=== PATIENT | male | born 1950 | race Caucasian/White ===

== ENCOUNTER 2018-12-15 18:05 | Emergency (ER) | payer MEDICARE, OTHER ==
[2018-12-15] MEDS ORDERED: Clindamycin 600 MG IVPREMIX(* 600 MG in PREMIX* 0 ML IV ONE (18:28)
[2018-12-15] MEDS ORDERED: Acetaminophen TAB* 325 MG PO ONE (18:29)
[2018-12-15] MEDS ORDERED: diPHENhydraMINE PO* 25 MG PO ONE (18:29)
--- NOTE | 2018-12-15 18:34 | ED ---
Skin Complaint - HPI Summary HPI Summary: 68-year-old male presents with rash for the past week. He states that he hit a shopping cart into his leg and had some abrasions. He states he started applying benzocaine on the area and then developing this rash. He states it is very itchy. He has been using benzocaine liberally. He states the rash is where he put the benzocaine. He's never had this reaction before. he states did apply burn cream the other day that helped. Denies any other different products. No fevers or chills. Has noticed any redness to the area. He is not diabetic. Never had this rash before. No increased swelling to his legs. denies any other symptoms. - History of Current Complaint Chief Complaint: EDGeneral Time Seen by Provider: 12/15/18 18:19 Stated Complaint: LEG RASH PER EMS Pain Intensity: 0 - Allergy/Home Medications Allergies/Adverse Reactions: Allergies Allergy/AdvReac Type Severity Reaction Status Date / Time latex Allergy Swelling Verified 12/15/18 18:13 naproxen Allergy Palpitation Verified 12/15/18 18:14 s PMH/Surg Hx/FS Hx/Imm Hx Endocrine/Hematology History: Denies: Hx Anticoagulant Therapy Cardiovascular History: Reports: Hx Angina, Hx Coronary Artery Disease, Hx Hypercholesterolemia, Hx Hypertension Musculoskeletal History: Reports: Hx Back Problems, Hx Orthopedic Injury - chronic back injury Sensory History: Reports: Hx Contacts or Glasses Opthamlomology History: Reports: Hx Contacts or Glasses - Cancer History Cancer Type, Location and Year: Family history Hx Chemotherapy: No - Surgical History Surgery Procedure, Year, and Place: Tonsillectomy Hx Anesthesia Reactions: No - Immunization History Date of Tetanus Vaccine: unsure 5-10 years per patient Infectious Disease History: No Infectious Disease History: Denies: Traveled Outside the [place] in Last 30 Days - Family History Known Family History: Positive: Non-Contributory - Social History Alcohol Use: None Substance Use Type: Reports: None Smoking Status (MU): Former Smoker Review of Systems Positive: Chills. Negative: Fever Negative: Chest Pain Negative: Shortness Of Breath Positive: Rash All Other Systems Reviewed And Are Negative: Yes Physical Exam Triage Information Reviewed: Yes Vital Signs On Initial Exam: Initial Vitals Temp Pulse Resp BP Pulse Ox 99.5 F 80 16 140/89 97 12/15/18 18:08 12/15/18 18:08 12/15/18 18:08 12/15/18 18:08 12/15/18 18:08 Vital Signs Reviewed: Yes Appearance: Positive: Well-Appearing Skin: Positive: Warm, Dry, Other - patch erythematous rash on bilateral legs, some warmth to touch, Head/Face: Positive: Normal Head/Face Inspection Eyes: Positive: Normal, Conjunctiva Clear ENT: Positive: Pharynx normal Respiratory/Lung Sounds: Positive: Clear to Auscultation, Breath Sounds Present Cardiovascular: Positive: Normal, RRR Musculoskeletal: Positive: Strength/ROM Intact - legs, Other - good pulses Neurological: Positive: Normal Psychiatric: Positive: Normal Diagnostics - Vital Signs Vital Signs Temp Pulse Resp BP Pulse Ox 12/15/18 18:08 99.5 F 80 16 140/89 97 - Laboratory Result Diagrams: 12/15/18 18:54 12/15/18 18:54 Lab Statement: Any lab studies that have been ordered have been reviewed, and results considered in the medical decision making process. Course/Dx - Course Course Of Treatment: 68-year-old male presents with rash for the past week. He states that he hit a shopping cart into his leg and had some abrasions. He states he started applying benzocaine on the area and then developing this rash. He states it is very itchy. He has been using benzocaine liberally. He states the rash is where he put the benzocaine. He's never had this reaction before. he states did apply burn cream the other day that helped. Denies any other different products. No fevers or chills. Has noticed any redness to the area. He is not diabetic. Never had this rash before. No increased swelling to his legs. On exam erythematous patchy rash to legs. Appears almost like burn but is warm to touch. wbc normal. CRP normal. With erythema the will treat this potential cellulitis with Keflex. Told to use Benadryl for itching. We'll give him bacitracin to treat like a potential burn. Told to stop benzocaine. Told to follow up with primary. Patient understands and agrees with plan. - Differential Diagnoses - Skin Complaint Differential Diagnoses: Cellulitis, Contact Dermatitis, Other - burn - Diagnoses Provider Diagnoses: Rash Discharge - Sign-Out/Discharge Documenting (check all that apply): Patient Departure Patient Received Moderate/Deep Sedation with Procedure: No - Discharge Plan Condition: Good Disposition: HOME Prescriptions: Bacitracin OINTMENT* 1 applic TOPICAL BID #1 tube Cephalexin CAP* [Keflex CAP*] 500 mg PO BID #14 cap Patient Education Materials: Contact Dermatitis (ED) Referrals: Tiffanie Escoto [Nurse Practitioner] - Additional Instructions: take keflex twice a day for 7 days Apply bacitracin cream to area once a day and cover area Take tyenlol for pain every 6 hour Establish care with primary for follow up Return to ED if any new or worsening symptoms - Billing Disposition and Condition Condition: GOOD Disposition: Home
[2018-12-15 19:03] LABS: ABS Basophils 0 10^3/ul (0-0.2); ABS Eosinophils 0.3 10^3/ul (0-0.6); ABS Monocytes 0.4 10^3/ul (0-0.8); ABS Neutrophils 5.5 10^3/ul (1.5-7.7); ABS Nucleated RBC 0 10^3/ul; Eosinophil % 4.4 %; Hematocrit 43 % (36-46); Hemoglobin 14.4 g/dL (14.0-18.0); Lymphocyte % 14.3 %; Mean Corpuscular HGB Conc 34 g/dL (31-36); Mean Corpuscular Hemoglobin 31 pg (27-31); Mean Corpuscular Volume 93 fL (80-94); Mean Platelet Volume 7.4 fL (7.4-10.4); Nucleated Red Blood Cells % 0; Platelet Count 206 10^3/uL (150-450); Red Blood Count 4.57 10^6 /uL (4.18-5.48); Red Cell Distribution Width 14 % (10.5-15); White Blood Count 7.2 10^3/uL (3.5-10.8)
[2018-12-15] MEDS ORDERED: Cephalexin CAP* 500 MG PO ONE (19:12)
[2018-12-15 19:19] LABS: Albumin 4.5 g/dL (3.2-5.2); Albumin/Globulin Ratio 1.5 (1-3); BUN/Creatinine Ratio 13.9 (8-20); C Reactive Protein 2.46 mg/L (<8.01); Calcium 9.2 mg/dL (8.6-10.3); EGFR African American 76.8 (>60); EGFR Non-African American 63.4 (>60); Globulin 3.1 g/dL (2-4); Potassium 3.7 mmol/L (3.5-5.0); Total Bilirubin 0.5 mg/dL (0.2-1.0); Total Protein 7.6 g/dL (6.4-8.9)
[2018-12-15 20:56] VITALS: BP 115/68
== END 2018-12-15 20:20 | disposition home or self-care (01) ==
LOC: ED 18:05
DX: R21 Rash and other nonspecific skin eruption (principal); I25.10 Atherosclerotic heart disease of native coronary artery without angina pectoris; Z87.891 Personal history of nicotine dependence; R68.83 Chills (without fever)
CPT/HCPCS: 36415; 80053; 83605; 85025; 86140; 87040; 96374; 99282; A9270-GY

== ENCOUNTER 2022-09-21 14:50 | Observation (INO) ==
[2022-09-21 16:05] LABS: ABS Lymphocytes 0.7 10^3/ul (1.0-4.8); ABS Monocytes 0.3 10^3/ul (0-0.8); ABS Neutrophils 5.6 10^3/ul (1.5-7.7); Eosinophil % 0.5 %; Hematocrit 45 % (42-52); Hemoglobin 14.6 g/dL (14.0-18.0); Lymphocyte % 9.8 %; Mean Corpuscular HGB Conc 33 g/dL (31-36); Mean Corpuscular Hemoglobin 30 pg (27-31); Mean Corpuscular Volume 93 fL (80-94); Mean Platelet Volume 7.8 fL (7.4-10.4); Platelet Count 196 10^3/uL (150-450); Red Cell Distribution Width 14 % (10-15); White Blood Count 6.7 10^3/uL (3.5-10.8)
[2022-09-21 16:41] LABS: Urine Appearance Turbid; Urine Color Red
[2022-09-21 16:42] LABS: Urine Specific Gravity 1.011 (1.002-1.030)
[2022-09-21 16:50] LABS: Albumin 4.4 g/dL (3.2-5.2); Albumin/Globulin Ratio 1.6 (1-3); C Reactive Protein 1.95 mg/L (<8.01); Calcium 9.6 mg/dL (8.6-10.3); Creatinine, Serum 0.99 mg/dL (0.67-1.17); Globulin 2.8 g/dL (2-4); Total Bilirubin 0.6 mg/dL (0.2-1.0); Total Protein 7.2 g/dL (6.4-8.9)
[2022-09-21 16:52] LABS: Potassium 4.2 mmol/L (3.5-5.0)
[2022-09-21 16:52] LABS: Urine Bacteria Absent (Absent); Urine Red Blood Cell 3+(>10/hpf) (Absent); Urine White Blood Cell 1+(6-10/hpf) (Absent)
[2022-09-21 20:19] LABS: PSA Screening Total 4.977 ng/mL (0-4.000)
[2022-09-21] MEDS ORDERED: cefTRIAXone 1 gm/50 mL D5W 1 GM/50 ML BAG IV SCH (20:30)
[2022-09-21] MEDS ORDERED: Iohexol 350 (CONTRAST) 500 ML MDV IV ONE (21:35)
[2022-09-21] MEDS ORDERED: Calcium Carb (TUMS) 500 mg CHEW TAB PO PRN (21:55)
[2022-09-21] MEDS ORDERED: Calcium Carb (TUMS) 500 mg CHEW TAB ONE (21:58)
[2022-09-22 06:08] LABS: ABS Lymphocytes 1.2 10^3/ul (1.0-4.8); ABS Monocytes 0.4 10^3/ul (0-0.8); ABS Neutrophils 6.1 10^3/ul (1.5-7.7); Eosinophil % 0.5 %; Hematocrit 42 % (42-52); Hemoglobin 14.1 g/dL (14.0-18.0); Lymphocyte % 14.9 %; Mean Corpuscular HGB Conc 34 g/dL (31-36); Mean Corpuscular Hemoglobin 31 pg (27-31); Mean Corpuscular Volume 92 fL (80-94); Platelet Count 160 10^3/uL (150-450); Red Blood Count 4.56 10^6 /uL (4.18-5.48); Red Cell Distribution Width 13 % (10-15); White Blood Count 7.7 10^3/uL (3.5-10.8)
[2022-09-22 06:26] LABS: Calcium 9.3 mg/dL (8.6-10.3); Creatinine, Serum 0.98 mg/dL (0.67-1.17); Potassium 4.3 mmol/L (3.5-5.0)
[2022-09-22 12:58] VITALS: BP 99/57
== END 2022-09-22 16:15 | disposition home or self-care (01) ==
LOC: EDHOLD 14:50 → ED 14:50 → SUATTDRO 18:39 → MEDTELE 09-22 01:10
PROVIDERS: ADMIT Internal Medicine; ATTEND Student in an Organized Health Care Education/Training Program